=== PATIENT | female | born 1990 | race Caucasian/White ===

== ENCOUNTER 2022-07-29 05:40 | Inpatient (IN) | payer BC, OTHER ==
[2022-07-29 06:14] VITALS: BMI 33.2
[2022-07-29 06:26] LABS: Hemoglobin 12.2 g/dL (12.0-15.5); Mean Corpuscular HGB CONC 34.5 g/dL (32.0-36.0); Mean Corpuscular Hemoglobin 30.7 pg (27.0-33.0); Mean Corpuscular Volume 88.9 fl (81.6-98.3); Mean Platelet Volume 10.8 fl (7.4-10.4); Platelet Count 251 10x3/uL (150-450); RBC Distribution Width 13.3 % (11.5-14.5); Red Blood Cell (RBC) Count 3.98 10x6/uL (3.90-5.03); White Blood Cell (WBC) Count 8.4 10x3/uL (3.5-10.5)
[2022-07-29] MEDS ORDERED: Famotidine/PF 20 mg/2ml Vial SLOW IVP PRN (06:42)
[2022-07-29] MEDS ORDERED: Bicitra 30 ML UDCUP PO PRN (06:43)
[2022-07-29] MEDS ORDERED: CEFAZOLIN 2 GM in Sodium Chloride 0.9% 100 ML IVPB SCH (06:45)
[2022-07-29] MEDS ORDERED: Lactated Ringer's 1,000 ML IV SCH ×2 (06:45)
[2022-07-29] MEDS ORDERED: Promethazine HCl 25 MG/ML VIAL IM PRN ×3 (06:45→13:08)
[2022-07-29] MEDS ORDERED: Ondansetron PF 4 MG/2 ML Vial IVP PRN ×3 (06:45→13:08)
[2022-07-29] MEDS ORDERED: hydrALAZINE 20 MG/ML VIAL SLOW IVP PRN ×2 (06:45→13:08)
[2022-07-29] MEDS ORDERED: Acetaminophen 500 MG TAB PO PRN (06:45)
[2022-07-29] MEDS ORDERED: HYDROmorphone 2 MG/ML VIAL SLOW IVP PRN (06:53)
[2022-07-29] MEDS ORDERED: Fentanyl 100 MCG/2 ML VIAL SLOW IVP PRN (06:53)
[2022-07-29] MEDS ORDERED: diphenhydrAMINE 50 MG/ML VIAL IVP PRN (06:53)
[2022-07-29] MEDS ORDERED: Promethazine HCl 25 MG SUPP PR PRN (06:53)
[2022-07-29] MEDS ORDERED: Moisturizing Cream (Eucerin) 113 GM JAR TOP PRN (06:53)
[2022-07-29] MEDS ORDERED: Ondansetron HCl/PF 4 MG/2 ML Vial IVP PRN (06:53)
[2022-07-29] MEDS ORDERED: Ketorolac Tromethamine 30 MG/ML VIAL IVP PRN (06:53)
[2022-07-29] MEDS ORDERED: Naloxone HCl 0.4 mg/ml Vial IVP PRN ×2 (06:53)
[2022-07-29] MEDS ORDERED: Meperidine HCl/PF 25 MG/ML VIAL SLOW IVP PRN (06:53)
[2022-07-29] MEDS ORDERED: Naloxone HCl 0.4 mg/ml Vial IV PRN (06:53)
[2022-07-29] MEDS ORDERED: Communication Order-Pharmacy FS SCH (07:00)
[2022-07-29] MEDS ORDERED: Ketorolac Tromethamine 30 MG/ML VIAL IVP SCH (07:00)
[2022-07-29 07:04] LABS: Hep B Surf Ag Non-Reactive S/CO (NonReactive)
[2022-07-29] MEDS ORDERED: Fentanyl 100 MCG/2 ML VIAL ONE (07:09)
[2022-07-29] MEDS ORDERED: Morphine PF 10 MG/10 ML VIAL ONE (07:09)
[2022-07-29] MEDS ORDERED: Ondansetron PF 4 MG/2 ML Vial ONE (07:09)
[2022-07-29] MEDS ORDERED: Phenylephrine 10 MG/ML VIAL ONE (07:09)
[2022-07-29] MEDS ORDERED: Oxytocin 10 UNITS/ML VIAL ONE (07:09)
[2022-07-29] MEDS ORDERED: Ketorolac Tromethamine 30 MG/ML VIAL ONE (07:10)
[2022-07-29 07:59] LABS: Syphilis Antibody Nonreactive (Nonreactive); Syphilis Antibody Index 0.03 S/CO (<1.00 Non-Reactive)
[2022-07-29] MEDS ORDERED: ePHEDrine Sulfate 50 MG/10 ML VIAL ONE (09:54)
[2022-07-29] MEDS ORDERED: NS w/ Oxytocin 30 units 500 ML ONE (12:06)
[2022-07-29] MEDS ORDERED: Simethicone Chewable 80 MG TAB PO PRN (13:08)
[2022-07-29] MEDS ORDERED: Bisacodyl 10 MG SUPP PR PRN (13:08)
[2022-07-29] MEDS ORDERED: Boostrix 0.5 ML (Tdap) VIAL (>/=7 yrs of age) IM ONE (13:08)
[2022-07-29] MEDS ORDERED: HYDROcodone/Acetaminophen 5/325 mg Tablet PO PRN ×2 (13:08)
[2022-07-29] MEDS ORDERED: diphenhydrAMINE 25 MG CAP PO PRN (13:08)
[2022-07-29] MEDS ORDERED: Lanolin Ointment 7 GM TUBE TOP PRN (13:08)
[2022-07-29] MEDS ORDERED: Acetaminophen 325 MG TAB PO PRN (13:08)
[2022-07-29] MEDS ORDERED: Zolpidem Tartrate 5 MG TAB PO PRN (13:08)
[2022-07-29] MEDS ORDERED: Ferrous Sulfate 325 MG TAB PO SCH (13:15)
[2022-07-29] MEDS ORDERED: Prenatal Vitamin 1 TAB PO SCH (13:15)
[2022-07-29] MEDS ORDERED: Docusate 100 MG CAP PO SCH (13:15)
[2022-07-29] MEDS ORDERED: Misoprostol 200 MCG TAB ONE (13:20)
[2022-07-29] MEDS ORDERED: Misoprostol 200 MCG TAB PR SCH (13:30)
[2022-07-29] MEDS ORDERED: Ibuprofen 800 MG TAB PO SCH (14:00)
[2022-07-29] MEDS ORDERED: Methylergonovine 0.2 MG/ML VIAL ONE (14:07)
[2022-07-29] MEDS ORDERED: Tranexamic Acid 1,000 MG/10 ML VIAL ONE (14:07)
[2022-07-29] MEDS ORDERED: Tranexamic Acid 1,000 MG in Sodium Chloride 0.9% 250 ML 250 ML IVPB SCH (14:15)
[2022-07-29] MEDS ORDERED: Tranexamic Acid 1,000 MG/10 ML VIAL IVP SCH (14:30)
[2022-07-29] MEDS ORDERED: Methylergonovine 0.2 MG/ML VIAL IM SCH (14:30)
[2022-07-29] MEDS: Ketorolac Tromethamine 30 MG/ML VIAL IVP PRN (21:14)
[2022-07-29] MEDS: Docusate 100 MG CAP PO SCH (21:15)
[2022-07-29] MEDS: Ferrous Sulfate 325 MG TAB PO SCH (21:18)
[2022-07-30 05:47] LABS: Hemoglobin 10.4 g/dL (12.0-15.5); Mean Corpuscular HGB CONC 33.4 g/dL (32.0-36.0); Mean Corpuscular Hemoglobin 30.9 pg (27.0-33.0); Mean Corpuscular Volume 92.3 fl (81.6-98.3); Platelet Count 190 10x3/uL (150-450); RBC Distribution Width 13.6 % (11.5-14.5); Red Blood Cell (RBC) Count 3.37 10x6/uL (3.90-5.03); White Blood Cell (WBC) Count 9.3 10x3/uL (3.5-10.5)
[2022-07-30] MEDS: Ketorolac Tromethamine 30 MG/ML VIAL IVP PRN (05:48)
[2022-07-30] MEDS: Ferrous Sulfate 325 MG TAB PO SCH ×2 (07:07→22:38)
[2022-07-30] MEDS: Prenatal Vitamin 1 TAB PO SCH (10:01)
[2022-07-30] MEDS: Docusate 100 MG CAP PO SCH ×2 (10:05→22:38)
[2022-07-30] MEDS: Ibuprofen 800 MG TAB PO SCH ×2 (12:05→19:22)
[2022-07-31] MEDS: Ibuprofen 800 MG TAB PO SCH ×2 (04:02→11:27)
[2022-07-31] MEDS: Prenatal Vitamin 1 TAB PO SCH (08:32)
[2022-07-31] MEDS: Docusate 100 MG CAP PO SCH (08:34)
[2022-07-31] MEDS: Ferrous Sulfate 325 MG TAB PO SCH (08:34)
[2022-07-31 08:42] VITALS: BP 101/58; TEMP 97.9
== END 2022-07-31 16:15 | disposition home or self-care (01) | DRG 785 ==
LOC: CSHLD 05:40 → CSHPP 16:40
PROVIDERS: ADMIT Student in an Organized Health Care Education/Training Program; ATTEND Student in an Organized Health Care Education/Training Program
PROC: 10D00Z1 Extraction of Products of Conception, Low, Open Approach (ICD-10-PCS; principal; 2022-07-29)
PROC: 0UT70ZZ Resection of Bilateral Fallopian Tubes, Open Approach (ICD-10-PCS; 2022-07-29)
PROC: 0UC97ZZ Extirpation of Matter from Uterus, Via Natural or Artificial Opening (ICD-10-PCS; 2022-07-29)
DX: O34.211 Maternal care for low transverse scar from previous cesarean delivery (principal); Z3A.39 39 weeks gestation of pregnancy; Z37.0 Single live birth; F41.9 Anxiety disorder, unspecified; O99.344 Other mental disorders complicating childbirth; O99.824 Streptococcus B carrier state complicating childbirth
CPT/HCPCS: 36415; 51702; 85027; 86780; 86850; 86900; 86901; 87340; 88302; J0690; J1885; J2210; J2274; J2370; J2405; J2550; J2590; J3010; J3490; S0028

== ENCOUNTER 2022-08-12 14:32 | Emergency (ER) | payer OTHER ==
[2022-08-12 15:06] LABS: Bilirubin Neg (Negative); Blood, Urine 250 (Negative); Glucose, Urine (Dipstick) Normal (Negative); Ketone, Urine Negative (Negative); Leukocyte 500 (Negative); Nitrite Negative (Negative); Protein, Urine (Dipstick) 30 mg/dl (Neg-Trace); Specific Gravity, Urine 1.015 (1.005-1.030); Urobilinogen Normal mg/dL (Less than 2)
[2022-08-12 15:08] LABS: #Basophils 0.1 10x3/uL (0.0-0.2); #Eosinphils 0.2 10x3/uL (0.0-0.5); #Monocytes 0.3 10x3/uL (0.0-1.1); #Neutrophils 3.5 10x3/uL (1.5-8.4); %Basophils 1.4 % (0.0-2.0); %Eosinophils 2.7 % (0.0-6.0); %Lymphocytes 35.9 % (18.0-47.0); %Monocytes 4.9 % (0.0-10.0); %Neutrophils 54.6 % (40.0-75.0); Hemoglobin 11.9 g/dL (12.0-15.5); Mean Corpuscular HGB CONC 32.5 g/dL (32.0-36.0); Mean Corpuscular Hemoglobin 30.4 pg (27.0-33.0); Mean Corpuscular Volume 93.4 fl (81.6-98.3); Mean Platelet Volume 9.8 fl (7.4-10.4); Platelet Count 398 10x3/uL (150-450); RBC Distribution Width 13.1 % (11.5-14.5); Red Blood Cell (RBC) Count 3.92 10x6/uL (3.90-5.03); White Blood Cell (WBC) Count 6.4 10x3/uL (3.5-10.5)
[2022-08-12 15:11] LABS: Clarity Slightly Cloudy (Clear)
[2022-08-12 15:13] LABS: Bacteria/HPF 1+ HPF (None Seen); Squamous Epithelial 0-3 HPF (0-3)
[2022-08-12 15:28] LABS: ALT (SGPT) 15 U/L (8-55); AST (SGOT) 17 U/L (5-34); Alkaline Phosphatase 72 U/L (40-110); Anion Gap 13 mmol/L (10-20); BUN (Urea Nitrogen) 12 mg/dL (7.0-18.7); Bilirubin, Total 0.2 mg/dL (0.2-1.2); Calc. Creatinine Clearance 0 mL/min (70-130); Calcium 8.9 mg/dL (7.8-10.44); Carbon Dioxide 24 mmol/L (22-29); Chloride 109 mmol/L (98-107); Estimated GFR 97; Globulin 2.6 g/dL (2.4-3.5); Glucose 90 mg/dL (70-105); Potassium 4.1 mmol/L (3.5-5.1); Protein, Total 6.6 g/dL (6.0-8.3); Sodium 142 mmol/L (136-145)
== END 2022-08-12 16:58 | disposition home or self-care (01) ==
LOC: CSHERS 14:32
DX: O72.2 Delayed and secondary postpartum hemorrhage (principal)
CPT/HCPCS: 36415; 80053; 81003; 81015; 85025; 99284